=== PATIENT | male | born 1990 | race American Indian/Alaskan Native ===

== ENCOUNTER 2019-05-02 17:39 | Emergency (ER) | payer OTHER ==
[2019-05-02 17:58] VITALS: BP 144/87
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
[2019-05-02] MEDS ORDERED: DECADRON IM ONE (19:08)
[2019-05-02] MEDS ORDERED: ULTRAM PO ONE (19:08)
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
== END 2019-05-02 20:45 | disposition home or self-care (01) ==
LOC: ED 17:39
DX: S16.1XXA Strain of muscle, fascia and tendon at neck level, initial encounter (principal); S39.012A Strain of muscle, fascia and tendon of lower back, initial encounter; J45.909 Unspecified asthma, uncomplicated; F17.200 Nicotine dependence, unspecified, uncomplicated; F12.10 Cannabis abuse, uncomplicated; Z91.013 Allergy to seafood; Z91.09 Other allergy status, other than to drugs and biological substances; Z79.899 Other long term (current) drug therapy; V89.2XXA Person injured in unspecified motor-vehicle accident, traffic, initial encounter; Y93.89 Activity, other specified; Y92.410 Unspecified street and highway as the place of occurrence of the external cause; Y99.8 Other external cause status
CPT/HCPCS: 70450; 72040; 72100; 96372; 99283; J1100